=== PATIENT | male | born 1980 | race Two or more races ===

== ENCOUNTER 2018-12-21 21:37 | Emergency (ER) | payer OTHER ==
--- NOTE | 2018-12-22 01:53 | ER Document Report ---
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 Patient was bit by dog over a week ago. Sutures were removed 4 days ago. Was at [facility] today and the left elbow area laceration popped open. Small amount of bleeding. No other issues at this time. TRAVEL OUTSIDE OF THE [place] IN LAST 30 DAYS: No - HPI Patient complains to provider of: Laceration Quality of pain: No pain - Related Data Allergies/Adverse Reactions: Penicillins Allergy (Verified 12/21/18 21:42) Past Medical History - General Information source: Patient - Social History Smoking Status: Unknown if Ever Smoked Frequency of alcohol use: None Drug Abuse: None Lives with: Family Family History: Reviewed & Not Pertinent Patient has suicidal ideation: No Patient has homicidal ideation: No - Medical History Medical History: Negative Renal/ Medical History: Denies: Hx Peritoneal Dialysis Review of Systems - Review of Systems Constitutional: denies: Fever, Malaise, Weakness Cardiovascular: denies: Chest pain, Palpitations Musculoskeletal: denies: Joint pain, Muscle pain, Deformity Skin: See HPI, Other - Laceration left elbow area Neurological/Psychological: denies: Weakness, Numbness Physical Exam - Vital signs Vitals: Temp Pulse Resp BP Pulse Ox 98.5 F 56 L 14 113/67 99 12/21/18 22:05 12/21/18 22:05 12/21/18 22:05 12/21/18 22:05 12/21/18 22:05 Interpretation: Normal - General General appearance: Appears well, Alert - Neurological Cognition: Normal Orientation: AAOx4 Sensory: Normal - Skin Skin Temperature: Warm Skin Moisture: Dry Skin Color: Other - There is a 1.5 cm laceration to the left medial elbow area. No active bleeding. Does not appear to be infected. Course - Re-evaluation Re-evalutation: 12/22/18 05:48 Patient had a sutured dog bite laceration that dehisced after strenuous physical activity today. I explained to the patient that this will require delayed wound healing. I placed some Steri-Strips to slightly close the area but I explained to him that it is not andrew to completely close the area again after it is open. We will start him on some antibiotics again. Patient has access to medical care. Will DC at this time in stable condition. - Vital Signs Vital signs: Temp Pulse Resp BP Pulse Ox 98.5 F 49 L 16 124/73 98 12/21/18 22:05 12/22/18 02:09 12/22/18 02:09 12/22/18 02:09 12/22/18 02:09 Discharge - Discharge Clinical Impression: Dehiscence of closure of skin Qualifiers: Encounter type: initial encounter Qualified Code(s): T81.31XA - Disruption of external operation (surgical) wound, not elsewhere classified, initial encounter Condition: Good Disposition: HOME, SELF-CARE Instructions: Non-Sutured Laceration ([facility]) Additional Instructions: Your previous sutured laceration has opened up. These are prone to infection. Please keep a very close eye on the laceration. If you begin to notice redness and swelling it will be imperative that you begin the antibiotics as prescribed immediately. Please follow-up with your medical provider for repeat evaluation. Hopefully this will heal from the inside out but this should take several weeks to completely heal. If you have any questions or concerns please do not hesitate to return immediately. Prescriptions: Clindamycin HCl 300 mg PO Q6H 7 Days #28 capsule Forms: Return to Work Referrals: LILIA DYSON FNP-C [Primary Care Provider] - Follow up as needed
[2018-12-22 02:12] VITALS: BP 124/73
== END 2018-12-22 02:12 | disposition home or self-care (01) ==
LOC: ER 21:37
DX: T81.31XA Disruption of external operation (surgical) wound, not elsewhere classified, initial encounter (principal); M25.522 Pain in left elbow; X58.XXXA Exposure to other specified factors, initial encounter; Z98.890 Other specified postprocedural states
CPT/HCPCS: 99282